=== PATIENT | female | born 2005 | race Two or more races ===

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

== ENCOUNTER → 2023-05-19 | Outpatient (REF) | LOC: M LAB REF 17:48 | PROVIDERS: ATTEND Obstetrics & Gynecology Obstetrics | DX: Z01.89 Encounter for other specified special examinations (principal) ==

== ENCOUNTER → 2023-05-26 | Outpatient (CLI) | payer OTHER | LOC: M RAD 14:36 | PROVIDERS: ATTEND Obstetrics & Gynecology Obstetrics | DX: Z34.02 Encounter for supervision of normal first pregnancy, second trimester (principal) ==